=== PATIENT | female | born 1990 | race Caucasian/White ===

== ENCOUNTER 2021-03-07 10:03 | Day surgery (SDC) | payer OTHER ==
[2021-02-28 13:10] LABS: CLARITY,URINE CLEAR (Clear); GLUCOSE, URINE NEGATIVE (Neg); KETONES,URINE NEGATIVE (Neg); LEUKOCYTE ESTERASE ,URINE NEGATIVE (Neg); NITRITES, URINE NEGATIVE (Neg); OCCULT BLOOD,URINE NEGATIVE (Neg); PH,URINE 5.5 (4.8-8.0); PROTEIN,URINE NEGATIVE (Neg); UROBILINOGEN,URINE 0.2 E.U/dL (0.2-1.0)
[2021-02-28 13:11] LABS: URINE HCG NEGATIVE (NEG)
[2021-02-28 13:16] LABS: BASOPHILS % (AUTO) 0.7 % (0-1); EOSINOPHILS # (AUTO) 0.2 X10'3 (0-0.9); EOSINOPHILS % (AUTO) 3.8 % (0-6); LYMPHOCYTES # (AUTO) 1.5 X10'3 (1.1-4.8); MEAN CORPUSCULAR HEMOGLOBIN 31.3 PG (27.0-31.0); MEAN CORPUSCULAR HGB CONC 34.3 g/dL (33.0-36.5); MEAN CORPUSCULAR VOLUME 91.1 FL (78-98); MEAN PLATELET VOLUME 8.9 FL (7.4-10.4); MONOCYTES # (AUTO) 0.4 X10'3 (0-0.9); MONOCYTES % (AUTO) 6.2 % (2-12); NEUTROPHILS # (AUTO) 4.2 X10'3 (1.8-7.7); NEUTROPHILS % (AUTO) 65.3 % (42-75); PRE OP HEMATOCRIT 43.3 % (35.0-45.0); PRE OP HEMOGLOBIN 14.8 g/dL (12.0-16.0); PRE OP PLATELET COUNT 258 X10'3 (140-440); RED BLOOD COUNT 4.75 X10'6 (4.20-5.60); RED CELL DISTRIBUTION WIDTH 12.9 % (11.5-14.5)
[2021-02-28 13:18] LABS: COLOR,URINE STRAW (Yellow); UA COLLECTION TYPE CLN CATCH MIDSTREAM
[2021-02-28 13:24] LABS: ALBUMIN 3.7 G/DL (3.4-5.0); ALBUMIN/GLOBULIN RATIO 0.9 (1.1-1.5); ALKALINE PHOSPHATASE 69 IU/L (46-116); BLOOD UREA NITROGEN 10 MG/DL (7-18); BUN/CREATININE RATIO 12.5 (6.6-38.0); CALCIUM 8.9 MG/DL (8.5-10.1); CHLORIDE 102 MMOL/L (99-107); PRE OP ALT 21 U/L (30-65); PRE OP ANION GAP 10 (8-16); PRE OP AST 14 U/L (10-37); PRE OP BILIRUB, TOTAL 0.2 MG/DL (0.0-1.0); PRE OP GLUCOSE 109 MG/DL (70-104); PRE OP POTASSIUM 3.4 MMOL/L (3.4-5.1); PRE OP SODIUM 140 MMOL/L (135-145); TOTAL CARBON DIOXIDE 28.2 MMOL/L (24-32); TOTAL PROTEIN 7.9 G/DL (6.4-8.2); eGFR 83 ML/MIN
[~2021-03-07] VITALS: Ht 170.2 cm; Wt 98.7 kg
[2021-03-07] VITALS (8 sets, daily range): BP systolic 113–133; BP diastolic 73–84
[~2021-03-07 10:03] MED LIST: BIRTH CONTROL PILLS; cefoxitin sod inj 2,000 MG in dextrose 5%-water 100 ML IV ONE; famotidine 20mg tablet PO ONE; ringers solution, lacted 1,000 ML IV SCH
[2021-03-07] MEDS ORDERED: BUPIVAcaine/PF 2.5 mg/ml (0.25%) 30ml vial ONE (11:44)
[2021-03-07] MEDS ORDERED: BUPIVAcaine 0.5% W/EPI /PF 30ml vial ONE (11:44)
[2021-03-07] MEDS ORDERED: fentaNYL/PF 50MCG/1 ML 2ML syringe ONE (12:17)
[2021-03-07] MEDS ORDERED: midazolam 1 mg/ML 2ml injection ONE (12:17)
[2021-03-07] MEDS ORDERED: rocuronium 10mg/ml inj IV ONE (12:17)
[2021-03-07] MEDS ORDERED: propofol inj 20 ML IV ONE (12:17)
[2021-03-07] MEDS ORDERED: proCHLORperazine 10 MG/2 ml inj IV PRN (12:20)
[2021-03-07] MEDS ORDERED: morphine 4 MG/ML inj SYRINge IV PRN (12:20)
[2021-03-07] MEDS ORDERED: ondansetron/PF 4mg/2ml inj IV PRN (12:20)
[2021-03-07] MEDS ORDERED: ketorolac trometh. 30mg/ml inj. IV ONE (12:20)
[2021-03-07] MEDS ORDERED: ringers solution, lacted 1,000 ML IV SCH (12:20)
[2021-03-07] MEDS ORDERED: morphine 2 MG/ML inj. syringe IV PRN (12:20)
[2021-03-07] MEDS ORDERED: meperidine/PF 25mg/ml syringe IV PRN ×3 (12:20)
[2021-03-07] MEDS ORDERED: dexamethasone sod phosphate 4mg/ml inj. ONE (12:30)
[2021-03-07] MEDS ORDERED: ondansetron/PF 4mg/2ml inj ONE (12:52)
[2021-03-07] MEDS ORDERED: glycopyrrolate 0.2mg/ml inj ONE (12:52)
[2021-03-07] MEDS ORDERED: neostigmine methylsulfate 1 MG/ML 10ml vial ONE (12:52)
--- NOTE | 2021-03-07 13:15 | NUR ---
Received from [place] via [facility], accompanied by Anesthesiologist [place] and report given by Anesthesiolgist. SKIN WARM, DRY. NO RESP DISTRESS, DENIES PAIN. DERMABOND TO THREE ABD INCISION SITES ARE CLEAR.
--- NOTE | 2021-03-07 13:45 | NUR ---
DOING VERY WELL. WANTS TO GO HOME. VSS, IV PATENT, NO RESP DISTRESS. ABD INCISIONS ARE THE SAME. DENIES PAIN.
--- NOTE | 2021-03-07 14:15 | NUR ---
DC TO HOME WITH DC CRITERIA MET. DENIES PAIN,VSS, IV OUT. ABD IS THE SAME. GIVEN DC INSTRUCTIONS, STATES UNDERSTANDS. ALL QUESTIONS ANSWERED, STATES UNDERSTANDS. WHEELCHAIR TO CAR, DRIVING.
== END 2021-03-07 14:15 | disposition home or self-care (01) ==
LOC: PAS 10:03
PROVIDERS: ATTEND Obstetrics & Gynecology Obstetrics
DX: Z30.2 Encounter for sterilization (principal); E66.9 Obesity, unspecified; Z68.34 Body mass index [BMI] 34.0-34.9, adult; F17.210 Nicotine dependence, cigarettes, uncomplicated; Z20.822 Contact with and (suspected) exposure to COVID-19; Z79.899 Other long term (current) drug therapy; Z98.890 Other specified postprocedural states; Z72.89 Other problems related to lifestyle; Z83.3 Family history of diabetes mellitus; Z80.3 Family history of malignant neoplasm of breast
CPT/HCPCS: 36415; 58670; 80053; 81003; 81025; 82948; 85025; 86885; 86900; 86901; J0694; J1100; J2250; J2405; J2704; J2710; J3010; J3490; J7030; J7060; J7120; S0020; U0003; U0005; Z7506; Z7512; A4618; A7000